=== PATIENT | male | born 1950 | race Caucasian/White ===

== ENCOUNTER 2017-03-06 23:47 | Emergency (ER) | payer OTHER, MEDICARE ==
[2017-03-06 23:54] VITALS: BP 162/78; PULSE 78; RESP 16; TEMP 97.7; O2SAT 97
[2017-03-06] MEDS ORDERED: LIDOCAINE 2% JELLY 20 ML (UROJECT) ONE (23:55)
--- NOTE | 2017-03-07 00:03 | EDPHY ---
H & P Time Seen by Provider: 03/06/17 23:56 HPI/ROS: This 67-year-old male with past medical history of urinary retention thought to be due to benign prostatic hypertrophy presents to the emergency room tonight with urinary retention. He has reestablished care in the area with a urologist and is scheduled to have a cystoscopy and bladder pressure test in about a week. In the meantime he had been instructed to self cath at home. Has been doing this successfully until this evening. He called his urologist's office who told him to come to the emergency room and have an indwelling catheter placed and then see him in the office on Wednesday. He denies significant abdominal discomfort, fever, or chills. He did have a scant amount of blood at the tip of the urethra after trying unsuccessfully to cath himself tonight. 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 States he quit smoking in 1974, he has a rare alcoholic beverage here in there, denies illicit drugs Smoking Status: Former smoker Constitutional: Initial Vital Signs Temperature (C) 97.7 F 03/06/17 23:52 Heart Rate 78 03/06/17 23:52 Respiratory Rate 16 03/06/17 23:52 Blood Pressure 162/78 H 03/06/17 23:52 O2 Sat (%) 97 03/06/17 23:52 O2 Delivery Mode Room Air Allergies/Adverse Reactions: No Known Allergies Allergy (Unverified 03/06/17 23:50) Home Medications: Medication Instructions Recorded Dutasteride 03/06/17 GABAPENTIN 03/06/17 Losartan Potassium 03/06/17 Mercaptopurine 03/06/17 Tamsulosin HCl 03/06/17 Medical Decision Making ED Course/Re-evaluation: The patient was seen and examined. Nursing placed an indwelling Velasco catheter and instructed the patient on Velasco catheter care. A UA and reflex urine culture was sent. Urinalysis was negative for nitrites and leukocyte esterase. There were a few RBCs and WBCs and 1+ bacteria and trace squamous epithelial cells. No antibiotics started at this time. Differential Diagnosis: Urinary retention, BPH, Bladder Outlet Obstruction, UTI, less likely bladder cancer - Data Points Laboratory Results: 03/07/17 00:04 Urine Color YELLOW Urine Appearance CLEAR Urine pH 6.0 (5.0-7.5) Ur Specific [place] 1.025 (1.002-1.030) Urine Protein NEGATIVE (NEGATIVE) Urine Ketones NEGATIVE (NEGATIVE) Urine Blood 1+ H (NEGATIVE) Urine Nitrate NEGATIVE (NEGATIVE) Urine Bilirubin NEGATIVE (NEGATIVE) Urine Urobilinogen 0.2 EU EU (0.2-1.0) Ur Leukocyte Esterase NEGATIVE (NEGATIVE) Urine RBC 10-15 /hpf H /hpf (0-3) Urine WBC 5-10 /hpf H /hpf (0-3) Ur Epithelial Cells TRACE /lpf /lpf (NONE-1+) Urine Bacteria 1+ /hpf H /hpf (NONE SEEN) Urine Mucus 1+ /lpf /lpf (NONE-1+) Ur Culture Indicated? INDICATED H (NI) Urine Glucose NEGATIVE (NEGATIVE) Medications Given: Discontinued Medications Lidocaine (Uroject Lidocaine 2% Jelly) 20 ml UR EDNOW ONE Stop: 03/07/17 00:11 Last Admin: 03/07/17 00:05 Dose: 20 ml Departure - Departure Disposition: Home, Routine, Self-Care Clinical Impression: Acute retention of urine Condition: Good Instructions: Urinary Retention in Men (ED), Velasco Catheter Placement and Care (ED) Referrals: Patient,NotPresent [Primary Care Provider] - As per Instructions Kwasi Mendoza MD [Medical Doctor] - 03/08/17
[2017-03-07] MEDS ORDERED: LIDOCAINE 2% JELLY 20 ML (UROJECT) UR ONE (00:10)
[2017-03-07 00:13] LABS: COLOR YELLOW; LEUKOCYTE ESTERASE,URINE NEGATIVE (NEGATIVE); NITRITE,URINE NEGATIVE (NEGATIVE)
[2017-03-07 00:23] LABS: BACTERIA 1+ /hpf (NONE SEEN); MUCUS 1+ /lpf (NONE-1+)
== END 2017-03-07 00:48 | disposition home or self-care (01) ==
LOC: CED 23:47
PROC: 0T9B70Z Drainage of Bladder with Drainage Device, Via Natural or Artificial Opening (ICD-10-PCS; principal; 2017-03-06)
DX: R33.9 Retention of urine, unspecified (principal); Z87.891 Personal history of nicotine dependence
CPT/HCPCS: 81003-PO; 81015-PO